=== PATIENT | male | born 1985 | race Two or more races ===

== ENCOUNTER 2018-11-27 16:55 | Emergency (ER) | payer BC, MEDICAID ==
--- NOTE | 2018-11-27 17:24 | EDPHY ---
General - History Smoking Status: Former smoker Time Seen by Provider: 11/27/18 17:05 Narrative: CLINICAL IMPRESSION: Viral pleurisy, right flank pain ASSESSMENT/PLAN: 33-year-old male presents to the emergency department with 2 day history of atraumatic right-sided flank pain, radiating to the right anterior chest with pleuritic component. Patient is slightly tachycardic on arrival, afebrile, nontoxic and nonseptic appearing. EKG read and interpreted by Dr. Paz, normal sinus rhythm, no acute ST or T-wave changes, no S1 q3 T3. Chest x-ray read by Radiology as unremarkable, no acute cardiopulmonary abnormalities. Troponin negative, D-dimer negative, lab work completely normal, no evidence of hematuria or UTI. No right upper quadrant tenderness, negative Dougherty sign, no transaminitis or suggestion of acute cholecystitis or cholelithiasis. Vitals improved after period of observation. Suspect viral pleurisy. No risk factors and low pretest probability for DVT and PE. Home care discussed, PCP follow-up recommended, case discussed with Dr. Paz, warning signs return to ED sooner outlined and discharge. DIFFERENTIAL DX: Differential diagnosis includes but not limited to myocardial ischemia, pulmonary embolus, chest wall pain, pleural inflammation, musculoskeletal chest wall pain, aortic aneurysm, and pulmonary infectious causes. ED PROCEDURES: See lab and/or imaging results below ED COURSE: 6:25 p.m.: EKG, diagnostic evaluation, history of reviewed with Dr. Paz. No evidence of hematuria, UTI, pyelonephritis, ACS, abnormal EKG changes, negative D-dimer, no transaminitis and otherwise normal labs. I suspect patient may have a viral pleurisy or musculoskeletal injury. I encouraged him to follow up with primary care. He is feeling better with Toradol. We discussed anti-inflammatories. A small amount of [place] was given for breakthrough pain. Warning signs return to ED sooner outlined discharge and person. CHIEF COMPLAINT: Right lower rib pain, shortness of breath, flank pain, chest pain HPI: This is a 33-year-old male with past medical history of asthma presents to the emergency department with a 2 day history of atraumatic right-sided flank pain radiating to the right anterior chest and across the chest wall and into the right upper abdomen. No associated injury, heavy lifting or fall. Pain is slightly worse with eating and much worse with taking deep breath. No associated URI symptoms, cough, fever, chills, sore throat. He has had a normal appetite with no nausea vomiting or diarrhea. Initially he had low back pain which is now resolved. He has been using ibuprofen for pain control which does help. He states this does not feel like an asthma attack. He also reports anxiety but reports this feels different. He reports no abdominal surgery, history of DVT or PE. There is no family history of cardiac disease at a young age. He quit smoking a year ago. He drinks alcohol socially. No recent surgery, car travel, and he is not sedentary. No complaints of lower extremity swelling or calf pain. PAST MEDICAL HISTORY: Asthma See nurse/triage notes for additional history if applicable Pertinent Past Surgical History: None reported Family History: No family history of cardiac disease, DVT or PE Social History: Nonsmoker REVIEW OF SYSTEMS: All other systems negative Constitutional: No fever, no chills, appetite change. Eyes: No discharge, vision change ENT: No sore throat, congestion, ear pain. Cardiovascular: Positive for chest pain, palpitations.] Respiratory: No cough, no shortness of breath. Gastrointestinal: Mild right upper quadrant abdominal pain, no vomiting, diarrhea. Genitourinary: No hematuria, dysuria, positive for right-sided flank pain, no pelvic pain Musculoskeletal: No back pain, joint swelling, joint pain, myalgias. Skin: No rashes, color change. Neurological: No headache, dizziness, weakness. PHYSICAL EXAM: General Appearance: Alert, oriented, appropriate, cooperative, NAD, well hydrated, non-toxic appearing, tachycardic no hypoxia. HEENT: Oropharynx clear is no erythema or exudates, no tonsillar hypertrophy or asymmetry. Dentition without abnormality. Neck: Supple, nontender, no lymphadenopathy, no midline pain, FROM, no meningismus. Respiratory: There are no retractions, lungs are clear to auscultation. No reproducible chest wall or rib tenderness to palpation Cardiac: Tachycardic, regular rhythm, no murmurs or gallops. Gastrointestinal: Abdomen is soft, nontender, bowel sounds normal, negative Dougherty sign, no masses/hernia, no rigidity, guarding or focal peritoneal findings. No reproducible CVA tenderness Neurological: Alert and oriented x 3, CN 2-12 grossly intact, normal gait no ataxia, DTR's intact, normal sensation and strength, no calf asymmetry or tenderness Skin: Warm, dry, no rashes, no nodules on palpation. Musculoskeletal: Extremities are symmetrical, full range of motion, no tenderness, deformity, swelling, or erythema. MEDICAL DECISION MAKING: Patient was seen independently. Secondary supervising physician at time of evaluation was Dr. Paz. Diagnosis: Viral pleurisy, right flank pain. New, requires workup Summary: See Assessment and Plan for summary of ED visit Clinical lab tests: ordered / reviewed. Independent visualization of images, tracing, or specimens: Yes. Decision to obtain medical records or history from someone other than the patient: No Review / Summarize previous medical records: Reviewed past ED notes Discussed patient with another provider: Discussed with Dr. Paz Patient Progress: Stable. (Fili Andrade) Medical Decision Making: I did not see the patient while he was in the emergency department. However his care was discussed with the PA while the patient was in the department. I agree with treatment plan and management (Moise Paz) - Diagnostics EKG Interpretation: EKG interpreted by me shows normal sinus rhythm normal interval and axis. QRS is normal there is no significant ST elevation or depression. No arrhythmia. The rate is 91. (Moise Paz) Imaging Results: Imaging Impressions Chest X-Ray 11/27/18 17:21 Impression: Mild bronchitis. No other findings for acute cardiopulmonary abnormality. - Objective Vital Signs: Initial Vital Signs Temperature (C) 36.6 C 11/27/18 16:58 Heart Rate 103 H 11/27/18 16:58 Respiratory Rate 18 11/27/18 16:58 Blood Pressure 131/86 H 11/27/18 16:58 O2 Sat (%) 97 11/27/18 16:58 O2 Delivery Mode Room Air Allergies/Adverse Reactions: No Known Allergies Allergy (Verified 11/27/18 17:02) Home Medications: Medication Instructions Recorded Albuterol 5 mg/ml INH 11/27/18 Hydrocodone/APAP 5/325 [[place] 1 - 2 tab PO Q4H PRN #10 tab 11/27/18 5/325 (*)] Laboratory Results: Laboratory Results 11/27/18 17:15 11/27/18 17:15 11/27/18 11/27/18 11/27/18 18:05 17:22 17:15 WBC RBC Hgb Hct MCV MCH MCHC RDW Plt Count MPV Neut % (Auto) Lymph % (Auto) [place] % (Auto) Eos % (Auto) Baso % (Auto) Nucleat RBC Rel Count Absolute Neuts (auto) Absolute Lymphs (auto) Absolute Monos (auto) Absolute Eos (auto) Absolute Basos (auto) Absolute Nucleated RBC Immature Gran % Immature Gran # D-Dimer Sodium 142 mEq/L mEq/L (135-145) Potassium 4.3 mEq/L mEq/L (3.5-5.2) Chloride 105 mEq/L mEq/L (97-110) Carbon Dioxide 29 mEq/l mEq/l (22-31) Anion Gap 8 mEq/L mEq/L (6-14) BUN 11 mg/dL mg/dL (7-23) Creatinine 0.9 mg/dL mg/dL (0.7-1.3) Estimated GFR > 60 Glucose 83 mg/dL mg/dL (70-100) Calcium 8.8 mg/dL mg/dL (8.5-10.4) Total Bilirubin 0.5 mg/dL mg/dL (0.1-1.4) Conjugated Bilirubin 0.3 mg/dL mg/dL (0.0-0.5) Unconjugated Bilirubin 0.2 mg/dL mg/dL (0.0-1.1) AST 43 IU/L IU/L (17-59) ALT 64 IU/L IU/L (21-72) Alkaline Phosphatase 96 IU/L IU/L (38-126) POC Troponin I 0.01 ng/mL ng/mL (0.00-0.08) Total Protein 7.0 g/dL g/dL (6.3-8.2) Albumin 4.2 g/dL g/dL (3.5-5.0) Lipase 75 IU/L IU/L (23-300) Urine Color YELLOW Urine Appearance MODERATELY TURBID Urine pH 7.0 (5.0-7.5) Ur Specific [place] 1.015 (1.002-1.030) Urine Protein NEGATIVE (NEGATIVE) Urine Ketones NEGATIVE (NEGATIVE) Urine Blood NEGATIVE (NEGATIVE) Urine Nitrate NEGATIVE (NEGATIVE) Urine Bilirubin NEGATIVE (NEGATIVE) Urine Urobilinogen 2.0 EU H EU (0.2-1.0) Ur Leukocyte Esterase NEGATIVE (NEGATIVE) Urine Glucose NEGATIVE (NEGATIVE) 11/27/18 11/27/18 17:15 17:15 WBC 6.99 10^3/uL 10^3/uL (3.80-9.50) RBC 5.30 10^6/uL 10^6/uL (4.40-6.38) Hgb 14.8 g/dL g/dL (13.7-17.5) Hct 45.7 % % (40.0-51.0) MCV 86.2 fL fL (81.5-99.8) MCH 27.9 pg pg (27.9-34.1) MCHC 32.4 g/dL g/dL (32.4-36.7) RDW 14.2 % % (11.5-15.2) Plt Count 236 10^3/uL 10^3/uL (150-400) MPV 10.4 fL fL (8.7-11.7) Neut % (Auto) 62.8 % % (39.3-74.2) Lymph % (Auto) 24.9 % % (15.0-45.0) [place] % (Auto) 9.4 % % (4.5-13.0) Eos % (Auto) 2.4 % % (0.6-7.6) Baso % (Auto) 0.4 % % (0.3-1.7) Nucleat RBC Rel Count 0.0 % % (0.0-0.2) Absolute Neuts (auto) 4.38 10^3/uL 10^3/uL (1.70-6.50) Absolute Lymphs (auto) 1.74 10^3/uL 10^3/uL (1.00-3.00) Absolute Monos (auto) 0.66 10^3/uL 10^3/uL (0.30-0.80) Absolute Eos (auto) 0.17 10^3/uL 10^3/uL (0.03-0.40) Absolute Basos (auto) 0.03 10^3/uL 10^3/uL (0.02-0.10) Absolute Nucleated RBC 0.00 10^3/uL 10^3/uL (0-0.01) Immature Gran % 0.1 % % (0.0-1.1) Immature Gran # 0.01 10^3/uL 10^3/uL (0.00-0.10) D-Dimer < 0.27 ug/mLFEU ug/mLFEU (0.00-0.50) Sodium Potassium Chloride Carbon Dioxide Anion Gap BUN Creatinine Estimated GFR Glucose Calcium Total Bilirubin Conjugated Bilirubin Unconjugated Bilirubin AST ALT Alkaline Phosphatase POC Troponin I Total Protein Albumin Lipase Urine Color Urine Appearance Urine pH Ur Specific [place] Urine Protein Urine Ketones Urine Blood Urine Nitrate Urine Bilirubin Urine Urobilinogen Ur Leukocyte Esterase Urine Glucose Medications Given: Discontinued Medications Ketorolac Tromethamine (Toradol) 15 mg IVP EDNOW ONE Stop: 11/27/18 18:08 Last Admin: 11/27/18 18:10 Dose: 15 mg Point of Care Test Results: Chemistry 11/27/18 17:22 POC Troponin I 0.01 ng/mL ng/mL (0.00-0.08) Departure - Departure Disposition: Home, Routine, Self-Care Clinical Impression: Viral pleurisy Condition: Good Instructions: Pleurisy (ED) Additional Instructions: DISCHARGE INSTRUCTIONS FROM YOUR DOCTOR Thank you for visiting our emergency department today. Please keep in mind that discharge from the emergency department does not mean that there is nothing wrong - it simply means that we have not identified an emergency condition that requires further evaluation or treatment in the hospital. You should always plan to follow up with primary care for re-evaluation of your condition in the next 2-3 days. If you have been referred to a specialist, please call as soon as possible (today or tomorrow) to schedule your follow up appointment at the appropriate time. YOUR EVALUATION IN THE EMERGENCY DEPARTMENT INCLUDED AN EKG, CARDIAC ENZYMES, A D-DIMER TO CHECK FOR BLOOD CLOT, CHEST X-RAY, LAB WORK, LIVER ENZYMES AND URINE STUDIES. WE FIND NO ABNORMALITY AND ANY OF THE STUDIES. NO SUGGESTION OF KIDNEY INFECTION, BLADDER INFECTION, KIDNEY STONE, GALLBLADDER DISEASE, INJURY TO THE HEART OR HEART ATTACK, ABNORMAL EKG, OR ABNORMAL CHEST X-RAY FINDINGS. YOU MAY HAVE A VIRAL PLEURISY. PLEASE CONSIDER USING ANTI- INFLAMMATORY LIKE IBUPROFEN, 600 MG 3 TIMES DAILY WITH FOOD AND A LARGE GLASS OF WATER FOR 3-5 DAYS. PLEASE FOLLOW UP WITH A PRIMARY CARE DOCTOR IN THE NEXT 24-48 HOURS. A REFERRAL WAS GIVEN. RETURN TO THE EMERGENCY DEPARTMENT FOR WORSENING PAIN, SHORTNESS OF BREATH, FEVER GREATER THAN 100.4, NAUSEA OR VOMITING, ABDOMINAL DISTENTION OR ABDOMINAL PAIN, TROUBLE URINATING OR ANY OTHER CONCERNS. People present with illnesses and injuries in different ways, and it is always possible that we have missed something. You may always return for re-evaluation if symptoms worsen or if they are not improving or if you develop new/different symptoms. Again, thank you for choosing our emergency department. We hope that you feel better. Referrals: NONE *PRIMARY CARE P,. [Primary Care Provider] - As per Instructions Vamshi Calderon MD [Medical Doctor] - 2-3 days, if not improved Prescriptions: Hydrocodone/APAP 5/325 [[place] 5/325 (*)] 1 - 2 tab PO Q4H PRN #10 tab PRN Reason: Pain, Moderate
[2018-11-27 17:28] LABS: PLATELET COUNT 236 10^3/uL (150-400)
[2018-11-27] MEDS ORDERED: KETOROLAC 15 MG/1 ML SDV IVP ONE (18:07)
[2018-11-27 18:47] VITALS: BP 122/75
--- NOTE | 2018-11-27 20:55 | CPEKG ---
Test Reason : OPEN Blood Pressure : / mmHG Vent. Rate : 091 BPM Atrial Rate : 089 BPM P-R Int : 150 ms QRS Dur : 090 ms QT Int : 334 ms P-R-T Axes : 014 045 006 degrees QTc Int : 411 ms Sinus rhythm Confirmed by Moise Paz ([id number]) on 11/27/2018 8:55:02 PM Referred By: Confirmed By:Moise Paz
== END 2018-11-27 18:56 | disposition home or self-care (01) ==
DX: R09.1 Pleurisy (principal); J40 Bronchitis, not specified as acute or chronic; Z87.891 Personal history of nicotine dependence
CPT/HCPCS: 84484-ER; 96374; J1885